=== PATIENT | male | born 1940 | race Two or more races ===

== ENCOUNTER 2017-12-10 18:11 | Outpatient (CLI) | payer OTHER | END 2017-12-10 18:36 | disposition home or self-care (01) | LOC: LAB 18:11 | DX: R97.20 Elevated prostate specific antigen [PSA] (principal) ==

== ENCOUNTER 2018-01-29 07:49 | Outpatient (CLI) | payer OTHER | END 2018-01-29 07:54 | disposition home or self-care (01) | LOC: SONOGRAMA 07:49 | DX: R97.20 Elevated prostate specific antigen [PSA] (principal) ==

== ENCOUNTER 2024-10-15 15:24 | Emergency (ER) | payer OTHER ==
[~2024-10-15] VITALS: Ht 162.6 cm; Wt 79.4 kg
[2024-10-15] MEDS ORDERED: LEVO-T75 MCG PO (16:38)
[2024-10-15] MEDS ORDERED: RAZADYNE ER16 MG PO (16:40)
[2024-10-15] MEDS ORDERED: SERTRALINE HCL100 MG PO (16:40)
[2024-10-15] MEDS ORDERED: HYDROXYZINE PAM25 MG PO (16:40)
[2024-10-15] MEDS ORDERED: ATORVASTATIN CA10 MG PO (16:40)
[2024-10-15 18:43] LABS: HEMATOCRIT 43.7 % (39.0-48.0); HEMOGLOBIN 14.4 g/dL (13-16.00); MEAN CELL VOLUME 98.1 fL (80.0-100.00); MEAN CORPUSCULAR HEMOGLOBIN 32.4 pg (27.00-32.0); PLATELET COUNT 297 K/uL (150-450); RED BLOOD COUNT 4.45 M/uL (4.00-6.00)
[2024-10-15 19:00] LABS: PH,URINE 5.5 (5.0-8.0); URINE APPEARANCE Clear; URINE BILIRRUBIN Negative (NEGATIVE); URINE BLOOD Negative; URINE COLOR Yellow; URINE GLUCOSE Negative (NEGATIVE); URINE KETONE Trace (NEGATIVE); URINE LEUKOCYTE Negative; URINE NITRATE Negative; URINE PROTEIN Negative (NEGATIVE); URINE UROBILINOGEN 0.2 E.U./dl
[2024-10-15 19:01] LABS: URINE BACTERIA 20.8 uL (0.0-1933); URINE EPITHELIAL CELLS 3.4 uL (0.0-38.8); URINE RBC 9.7 uL (0.0-20.8); URINE WBC 4.4 uL (0.0-23.2)
[2024-10-15 19:03] LABS: URINE CAST 0.14 uL (0.0-1.40)
[2024-10-15 19:11] LABS: INR 1.05; PARTIAL THROMBOPLASTIN TIME 27.1 SECONDS (22.0-34.0); PROTHROMBIN TIME 11.4 SECONDS (9.0-11.5)
[2024-10-15 19:24] LABS: ALBUMIN 4.2 gm/dL (3.4-5.0); BILIRUBIN TOTAL 0.56 mg/dL (0.3-1.2); CALCIUM 9.6 mg/dL (8.5-10.1); CREATININE SERUM 0.99 mg/dL (0.70-1.30); GFR 72.19; GLOBULINA 4.4 G/DL (2.4-3.5); POTASSIUM 4.6 mEq/L (3.5-5.1); TOTAL PROTEIN 8.6 gm/dL (6.4-8.2)
[2024-10-15] MEDS ORDERED: 0.9 % SODIUM CHLORIDE 500 ML IV ONE (19:45)
[2024-10-15] MEDS ORDERED: CIPROFLOXACIN IN 5 % DEXTROSE 400 MG/200 ML PIGGYBAG IV ONE ×2 (19:45→20:03)
== END 2024-10-15 23:48 ==
LOC: ER 15:24
PROVIDERS: General Practice
DX: S09.8XXA Other specified injuries of head, initial encounter (principal); W19.XXXA Unspecified fall, initial encounter; Y93.89 Activity, other specified; Y92.89 Other specified places as the place of occurrence of the external cause; Y99.8 Other external cause status; I10 Essential (primary) hypertension; E03.8 Other specified hypothyroidism; Z88.0 Allergy status to penicillin